=== PATIENT | male | born 1995 | race Caucasian/White ===

== ENCOUNTER 2020-07-05 16:33 | Emergency (ER) | payer SELFPAY ==
[~2020-07-05 16:33] MED LIST: ZITHROMAX250 MG PO; ZYRTEC-D TABLE1 EACH PO
[2020-07-05 19:11] LABS: HEMOGLOBIN 15.9 gm/dl (14.0-17.5); RED BLOOD COUNT 5.12 M/UL (4.20-5.50); WHITE BLOOD COUNT 12.1 K/UL (4.5-11.0)
[2020-07-05 19:28] LABS: BUN/CREATININE RATIO 13 (0-10)
== END 2020-07-05 21:48 | disposition home or self-care (01) ==
LOC: ER1 16:33
PROVIDERS: Family Medicine
DX: N50.812 Left testicular pain (principal); N50.811 Right testicular pain; F19.10 Other psychoactive substance abuse, uncomplicated; F17.200 Nicotine dependence, unspecified, uncomplicated; Z88.0 Allergy status to penicillin
CPT/HCPCS: 76870; 80053; 81001; 83690; 85025; 96374; 99284; J1885

== ENCOUNTER 2020-10-28 14:26 | Emergency (ER) | payer SELFPAY | END 2020-10-28 19:20 | disposition home or self-care (01) | LOC: ER1 14:26 | DX: U07.1 COVID-19 (principal); Z88.0 Allergy status to penicillin | CPT/HCPCS: 87081; 87880; 99283; U0002 ==

== ENCOUNTER 2021-09-20 11:27 | Emergency (ER) | payer OTHER ==
[2021-09-20] MEDS ORDERED: DOXYCYCLINE HY100 MG PO (11:48)
== END 2021-09-20 12:30 | disposition home or self-care (01) ==
LOC: ER1 11:27
DX: R59.0 Localized enlarged lymph nodes (principal); F17.200 Nicotine dependence, unspecified, uncomplicated
CPT/HCPCS: 99283